=== PATIENT | female | born 1965 | race Caucasian/White ===

== ENCOUNTER 2024-03-04 14:44 | Outpatient (RCR) | payer BC, SELFPAY | END 2024-03-04 23:59 | disposition home or self-care (01) | LOC: RPT 14:44 | PROVIDERS: ATTENDING PHYSICIAN Family Medicine | DX: M99.01 Segmental and somatic dysfunction of cervical region (principal); M25.531 Pain in right wrist; R29.3 Abnormal posture; Z73.6 Limitation of activities due to disability | CPT/HCPCS: 97110; 97162 ==

== ENCOUNTER 2024-03-30 15:45 | Outpatient (RCR) | payer BC, SELFPAY | END 2024-03-30 23:59 | disposition home or self-care (01) | LOC: ROT 15:45 | PROVIDERS: ATTENDING PHYSICIAN Family Medicine | DX: M25.531 Pain in right wrist (principal); Z73.6 Limitation of activities due to disability | CPT/HCPCS: 97010; 97035; 97110; 97140; 97166; 97535 ==

== ENCOUNTER 2024-05-07 09:00 | Outpatient (RCR) | payer BC, SELFPAY | END 2024-05-07 23:59 | disposition home or self-care (01) | LOC: ROT 09:00 | PROVIDERS: ATTENDING PHYSICIAN Family Medicine | DX: M25.531 Pain in right wrist (principal); Z73.6 Limitation of activities due to disability | CPT/HCPCS: 97010; 97018; 97035; 97110; 97140 ==

== ENCOUNTER 2024-05-19 15:34 | Outpatient (RCR) | payer BC, SELFPAY | END 2024-05-22 07:20 | disposition home or self-care (01) | LOC: ROT 15:34 | PROVIDERS: ATTENDING PHYSICIAN Family Medicine | DX: M25.531 Pain in right wrist (principal); Z73.6 Limitation of activities due to disability | CPT/HCPCS: 97010; 97018; 97110; 97140 ==

== ENCOUNTER → 2024-06-11 09:09 | Outpatient (REF) | payer BC, SELFPAY ==
[2024-06-11 14:20] LABS: IgA 159 mg/dl (70-400)
[2024-06-14 07:20] LABS: tTG IgA Antibody <1.02 FLU (0.00-4.99)
== END ==
LOC: RAD 09:09
PROVIDERS: ATTENDING PHYSICIAN Family Medicine; FAMILY PHYSICIAN Internal Medicine Gastroenterology
DX: M85.80 Other specified disorders of bone density and structure, unspecified site (principal)
CPT/HCPCS: 36415; 77080; 82784; 83516; 86231

== ENCOUNTER → 2024-06-15 11:02 | Outpatient (REF) | payer BC, SELFPAY ==
[2024-06-18 01:16] LABS: Fat, Fecal - Neutral Normal (Normal); Fat, Fecal - Split Normal (Normal)
== END ==
LOC: REG 11:02
PROVIDERS: ATTENDING PHYSICIAN Internal Medicine Gastroenterology; FAMILY PHYSICIAN Family Medicine
DX: K52.9 Noninfective gastroenteritis and colitis, unspecified (principal)
CPT/HCPCS: 82653; 82705; 83993; 87045; 87046; 87324; 87328; 87329; 87427; 87449

== ENCOUNTER → 2024-06-26 08:17 | Outpatient (REF) | payer BC, SELFPAY | LOC: WDC 08:17 | PROVIDERS: ATTENDING PHYSICIAN Obstetrics & Gynecology Gynecology; FAMILY PHYSICIAN Family Medicine | DX: Z12.31 Encounter for screening mammogram for malignant neoplasm of breast (principal) | CPT/HCPCS: 77063; 77067 ==

== ENCOUNTER 2024-07-20 06:17 | Day surgery (SDC) | payer BC, SELFPAY | END 2024-07-20 16:16 | disposition home or self-care (01) | LOC: GI 06:17 | PROVIDERS: ATTENDING PHYSICIAN Internal Medicine Gastroenterology | DX: R19.4 Change in bowel habit (principal); K63.5 Polyp of colon | CPT/HCPCS: 45385; 45380; 88305 ==

== ENCOUNTER → 2024-10-28 12:17 | Outpatient (REF) | payer BC, SELFPAY ==
[2024-10-28 14:21] LABS: Folate 17.5 ng/ml (2.76-20); Vitamin B12 604 pg/ml (239-931)
== END ==
LOC: REG 12:17
PROVIDERS: ATTENDING PHYSICIAN Family Medicine
DX: R71.8 Other abnormality of red blood cells (principal); R79.89 Other specified abnormal findings of blood chemistry
CPT/HCPCS: 36415; 81256; 82607; 82746

== ENCOUNTER → 2025-04-19 09:26 | Outpatient (REF) | payer BC, SELFPAY ==
[2025-04-23 22:56] LABS: HPV, High Risk Not Detected; HPV, High Risk Source Cervical
== END ==
LOC: CPAP 09:26
PROVIDERS: ATTENDING PHYSICIAN Obstetrics & Gynecology Gynecology
DX: Z01.419 Encounter for gynecological examination (general) (routine) without abnormal findings (principal)
CPT/HCPCS: 87624; G0123